=== PATIENT | male | born 1950 | race Caucasian/White ===

== ENCOUNTER 2017-10-06 16:28 | Emergency (ER) | payer MEDICARE, OTHER ==
[~2017-10-06] VITALS: Ht 177.8 cm; Wt 72.7 kg
[2017-10-06 16:31] VITALS: BP 189/87; PULSE 84; TEMP 100.7
[2017-10-06] MEDS ORDERED: PENTASA500 MG PO (16:49)
[2017-10-06] MEDS ORDERED: NEXIUM 40MG40 MG PO (16:50)
[2017-10-06 16:56] LABS: BASO % 0.2 % (0.0-2.0); EOS % 0.2 % (0-4.0); GRAN # 6.3 (1.4-6.5); GRAN % 57.8 % (42.2-75.2); LYMPH # 2.3 (1.2-3.4); LYMPH % 21.2 % (20.0-51.0); MEAN CELL VOLUME 90 fl (80.0-100.0); MEAN CORPUSCULAR HGB CONC 33 g/dl (33.0-37.0); MEAN PLATELET VOLUME 10.1 fl (7.4-10.4); MONO # 2.2 (0.1-0.6); MONO % 19.9 % (1.7-9.3); PLATELET COUNT 262 K/mm3 (130-400); RED BLOOD COUNT 3.75 M/mm3 (4.20-5.60); REDCELL DISTRIBUTION WIDTH-CV 13.5 % (11.5-14.5)
[2017-10-06 16:57] LABS: HEMATOCRIT 33.8 % (42.0-52.0); HEMOGLOBIN 11.2 g/dl (13.5-18.0); MEAN CORPUSCULAR HEMOGLOBIN 30 pg (27.0-31.0)
[2017-10-06 17:06] LABS: ALBUMIN 3.5 gm/dL (3.5-5.0); BILIRUBIN,TOTAL 0.5 mg/dL (0.0-1.0); CALCIUM 8.3 mg/dL (8.4-10.2); CREATININE, serum 0.73 mg/dL (0.66-1.25); POTASSIUM 3.3 mmol/L (3.4-5.0); TOTAL PROTEIN 6.8 gm/dL (6.4-8.2)
[2017-10-06 17:22] LABS: COLLECTION METHOD CLEAN CATCH
[2017-10-06 17:31] LABS: PH 6 (5-8); SQUAMOUS EPITHELIAL None Seen /hpf; URINE APPEARANCE Clear; URINE BACTERIA None Seen /hpf; URINE BILIRUBIN Negative (NEGATIVE); URINE BLOOD Negative (NEGATIVE); URINE COLOR Yellow; URINE GLUCOSE Negative (NEGATIVE); URINE KETONE Negative (NEGATIVE); URINE LEUKOCYTE ESTERASE Negative (NEGATIVE); URINE NITRATE Negative (NEGATIVE); URINE PROTEIN(semi-quant) Negative (NEGATIVE); URINE RBC 0-2 /hpf; URINE UROBILINOGEN Negative (NEGATIVE)
[2017-10-07] MEDS ORDERED: FLAGYL 250250 MG/TAB PO (19:22)
== END 2017-10-06 18:24 | disposition home or self-care (01) ==
LOC: COL.ER 16:28
PROVIDERS: Emergency Medicine
DX: B34.9 Viral infection, unspecified (principal); K21.9 Gastro-esophageal reflux disease without esophagitis; K50.90 Crohn's disease, unspecified, without complications; Z87.440 Personal history of urinary (tract) infections; Z98.890 Other specified postprocedural states
CPT/HCPCS: J7030; Q9967

== ENCOUNTER 2017-10-07 17:18 | Emergency (ER) | payer MEDICARE, OTHER ==
[~2017-10-07] VITALS: Ht 177.8 cm; Wt 70.5 kg
[~2017-10-07 17:18] MED LIST: NEXIUM 40MG40 MG PO; PENTASA500 MG PO
[2017-10-07 18:24] LABS: MEAN CELL VOLUME 90 fl (80.0-100.0); MEAN CORPUSCULAR HGB CONC 34 g/dl (33.0-37.0); MEAN PLATELET VOLUME 10.4 fl (7.4-10.4); PLATELET COUNT 204 K/mm3 (130-400); RED BLOOD COUNT 3.45 M/mm3 (4.20-5.60); REDCELL DISTRIBUTION WIDTH-CV 13.7 % (11.5-14.5)
[2017-10-07 18:26] LABS: HEMOGLOBIN 10.4 g/dl (13.5-18.0); MEAN CORPUSCULAR HEMOGLOBIN 30 pg (27.0-31.0)
[2017-10-07 18:38] LABS: BILIRUBIN,TOTAL 0.6 mg/dL (0.0-1.0); C-REACTIVE PROTEIN 3.4 mg/dL (0.0-0.9); CALCIUM 7.7 mg/dL (8.4-10.2); CREATININE, serum 0.74 mg/dL (0.66-1.25); TOTAL PROTEIN 6.2 gm/dL (6.4-8.2)
[2017-10-07 18:48] LABS: BAND 18 % (0-10); LYMPHOCYTE 8 % (20.0-51.0); NEUTROPHILS 69 % (42.0-75.2); PLATELET ESTIMATE NORMAL (NORMAL)
[2017-10-07 18:48] LABS: COLLECTION METHOD CLEAN CATCH
[2017-10-07 18:54] VITALS: BP 144/78; PULSE 85; TEMP 102.6
[2017-10-07 18:55] LABS: PH 8 (5-8); SQUAMOUS EPITHELIAL None Seen /hpf; URINE APPEARANCE Hazy; URINE BACTERIA None Seen /hpf; URINE BILIRUBIN Negative (NEGATIVE); URINE BLOOD Negative (NEGATIVE); URINE COLOR Yellow; URINE GLUCOSE Negative (NEGATIVE); URINE KETONE Negative (NEGATIVE); URINE LEUKOCYTE ESTERASE Negative (NEGATIVE); URINE NITRATE Negative (NEGATIVE); URINE PROTEIN(semi-quant) Negative (NEGATIVE); URINE RBC 0-2 /hpf; URINE UROBILINOGEN Negative (NEGATIVE)
[2017-10-07] MEDS ORDERED: FLAGYL 250250 MG/TAB PO (19:22)
== END 2017-10-07 19:48 | disposition short-term general hospital (02) ==
LOC: COL.ER 17:18
PROVIDERS: Family Medicine
DX: K52.9 Noninfective gastroenteritis and colitis, unspecified (principal); K50.90 Crohn's disease, unspecified, without complications
CPT/HCPCS: J7030

== ENCOUNTER 2021-04-23 11:26 | Day surgery (SDC) | payer MEDICARE, OTHER ==
[~2021-04-23] VITALS: Ht 180.3 cm; Wt 68.4 kg
[~2021-04-23 11:26] MED LIST changes: +FLAGYL 250250 MG/TAB PO
[2021-04-23] MEDS ORDERED: PRIL40 PO (12:04)
[2021-04-23] MEDS ORDERED: FLEXERIL 1010 MG/TAB PO (12:07)
[2021-04-23 12:27] VITALS: BP 154/84; PULSE 66; TEMP 97.2
[2021-04-23 13:55] VITALS: BP 128/80; PULSE 66; TEMP 97
[2021-04-23 14:00] VITALS: BP 125/85; PULSE 70
[2021-04-23 14:15] VITALS: PULSE 60
[2021-04-23 14:35] VITALS: BP 142/80; PULSE 62
--- NOTE | 2021-04-23 15:00 | NUR ---
1355 Pt returns from endo procedure via cart and RN assist to [facility]. Pt ambulates from cart to recliner with RN assist. Monitors on and alarms set. Call light within reach. Report received from JUANCHO Pandey. Pt alert and oriented. Pt requests juice and muffin. Pt denies any pain or nausea. 1405 Pt taking food and drink well. No complications noted. 1430 Pt ambulates to restroom with RN assist without complication. 1450 Discharge instructions given to pt and . All questions answered to their satisfaction. Handed to pt are a thank you card and discharge information. 1500 Pt transferred out of the hospital via wheelchair and this RN assist, to private vehicle driven by pt's .
== END 2021-04-23 13:55 | disposition home or self-care (01) ==
LOC: SDCO 11:26
DX: K50.00 Crohn's disease of small intestine without complications (principal); K21.9 Gastro-esophageal reflux disease without esophagitis; K63.3 Ulcer of intestine; K57.30 Diverticulosis of large intestine without perforation or abscess without bleeding; M19.90 Unspecified osteoarthritis, unspecified site; K59.00 Constipation, unspecified; K22.70 Barrett's esophagus without dysplasia; Z20.822 Contact with and (suspected) exposure to COVID-19; Z79.899 Other long term (current) drug therapy
CPT/HCPCS: J2704; J7120

== ENCOUNTER → 2021-06-03 | Outpatient (CLI) | payer MEDICARE, OTHER ==
[~2021-06-03] MED LIST changes: +FLEXERIL 1010 MG/TAB PO; +PRIL40 PO
== END ==
LOC: COL.RAD 07:44
DX: K50.919 Crohn's disease, unspecified, with unspecified complications (principal)

== ENCOUNTER 2021-11-25 12:46 | Outpatient (CLI) | payer MEDICARE, OTHER ==
[~2021-11-25] VITALS: Ht 180.3 cm; Wt 69.4 kg
[2021-11-25 13:15] LABS: HEMOGLOBIN 10.3 g/dl (13.5-18.0); MEAN CELL VOLUME 83 fl (80.0-100.0); MEAN CORPUSCULAR HEMOGLOBIN 26 pg (27-31); MEAN CORPUSCULAR HGB CONC 31 g/dl (33.0-37.0); PLATELET COUNT 235 K/mm3 (130-400); RED BLOOD COUNT 4.04 M/mm3 (4.20-5.60); REDCELL DISTRIBUTION WIDTH-CV 18.9 % (11.5-14.5)
[2021-11-25 13:17] LABS: HEMATOCRIT 33.5 % (42.0-52.0)
[2021-11-25 13:33] LABS: ALBUMIN 3.6 gm/dL (3.4-4.8); ALKALINE PHOSPHATASE 45 U/L (40-150); ANION GAP 8 mmol/L (7-16); AST,SGOT 14 U/L (5-34); BILIRUBIN,TOTAL 0.7 mg/dL (0.2-1.2); BLOOD UREA NITROGEN 13 mg/dL (8-26); CALCIUM 8.6 mg/dL (8.4-10.2); CARBON DIOXIDE 27 mmol/L (23-31); CHLORIDE 101 mmol/L (98-107); CREATININE, serum 0.82 mg/dL (0.72-1.25); GLUCOSE 211 mg/dL (70-99); POTASSIUM 4.1 mmol/L (3.5-4.5); SODIUM 136 mmol/L (136-145); TOTAL PROTEIN 7.1 gm/dL (6.2-8.1)
[2021-11-25 13:34] LABS: ALANINE AMINOTRANSFERASE < 6 U/L (0-55)
[2021-11-25 13:48] VITALS: BP 135/64; PULSE 73; TEMP 98.3
[2021-11-25 13:57] LABS: ANISOCYTOSIS 2+; BAND 2 % (0-10); HYPOCHROMIA 3+; LYMPHOCYTE 15 % (20.0-51.0); NEUTROPHILS 80 % (42.0-75.2); PLATELET ESTIMATE NORMAL (NORMAL)
[2021-11-25 13:58] LABS: SCHISTOCYTES 2+
[2021-11-25] MEDS ORDERED: IRON TABLETS325 MG PO (14:00)
--- NOTE | 2021-11-25 15:26 | NUR ---
Infusion completed, pt tolerated without issue. Discussed with pt that protocol is to have patients remain in dept for additional 30 min observation following initial dose of new medications. He states he does not wish to stay. Signs of adverse medication reactions reviewed with pt, he expresses understanding. He states that he lives close to hospital and will return with any concerns. Pt information packet about med was given to pt prior to infusion. INT DC'd with catheter intact. He is escorted out from dept.
[2021-11-25] MEDS ORDERED: PREDNISONE 5MG5 MG PO (15:40)
[2021-11-27 08:57] LABS: PATHOLOGY DIFF REVIEW OK
== END 2021-11-25 15:30 | disposition home or self-care (01) ==
LOC: EUO 12:46
PROVIDERS: Internal Medicine Gastroenterology
DX: K50.919 Crohn's disease, unspecified, with unspecified complications (principal)
CPT/HCPCS: J1200; J2930; J3358; J7050

== ENCOUNTER 2022-03-10 10:00 | Emergency (ER) | payer MEDICARE, OTHER ==
[~2022-03-10] VITALS: Ht 180.3 cm; Wt 70.5 kg
[~2022-03-10 10:00] MED LIST changes: +IRON TABLETS325 MG PO; +PREDNISONE 5MG5 MG PO
[2022-03-10 10:33] VITALS: TEMP 98.2
[2022-03-10] MEDS ORDERED: AMOXICILLIN 8751 TAB PO (12:21)
[2022-03-10 12:44] VITALS: BP 148/77; PULSE 75
== END 2022-03-10 12:44 | disposition home or self-care (01) ==
LOC: COL.ER 10:00
DX: S63.286A Dislocation of proximal interphalangeal joint of right little finger, initial encounter (principal); S50.311A Abrasion of right elbow, initial encounter; S40.811A Abrasion of right upper arm, initial encounter; S70.211A Abrasion, right hip, initial encounter; V29.3XXA Motorcycle rider (driver) (passenger) injured in unspecified nontraffic accident, initial encounter; Y93.55 Activity, bike riding; Y92.410 Unspecified street and highway as the place of occurrence of the external cause
CPT/HCPCS: J0690; J3010

== ENCOUNTER → 2022-11-15 | Outpatient (CLI) | payer MEDICARE, OTHER ==
[~2022-11-15] MED LIST changes: +AMOXICILLIN 8751 TAB PO
== END ==
LOC: COL.RAD 07:18
DX: Z13.6 Encounter for screening for cardiovascular disorders (principal); F17.201 Nicotine dependence, unspecified, in remission

== ENCOUNTER 2024-02-22 11:29 | Day surgery (SDC) | payer MEDICARE, OTHER ==
[~2024-02-22] VITALS: Ht 180.3 cm; Wt 70.0 kg
[~2024-02-22 11:29] MED LIST changes: +LR 1,000 ML IV SCH
[2024-02-22] MEDS ORDERED: PRILOSEC 20MG20 MG PO (12:07)
[2024-02-22] MEDS ORDERED: AMLODIPINE PO (12:09)
[2024-02-22] MEDS ORDERED: VALSARTAN PO (12:09)
[2024-02-22] MEDS ORDERED: STELARA90 MG/ML SQ (12:10)
[2024-02-22] MEDS ORDERED: XARELTO20 MG PO (12:11)
[2024-02-22 12:41] VITALS: BP 100/63; PULSE 66; TEMP 97.8
[2024-02-22] MEDS ORDERED: fentaNYL 50 MCG/ML 2 ML VIAL ONE (12:47)
[2024-02-22] MEDS ORDERED: Lidocaine PF 2% (20 MG/ML) 5 ML VIAL ONE (12:48)
[2024-02-22] MEDS ORDERED: Glycopyrrolate 0.2 MG/ML 1 ML VIAL ONE (12:48)
[2024-02-22] MEDS ORDERED: NS 10 ML IV ONE (12:48)
[2024-02-22] MEDS ORDERED: Ketorolac 30 MG/ML VIAL ONE (12:48)
[2024-02-22] MEDS ORDERED: Ondansetron 4 MG/2 ML VIAL ONE (12:48)
[2024-02-22] MEDS ORDERED: dexAMETHasone 10 MG/ML VIAL ONE (12:48)
[2024-02-22] MEDS ORDERED: Topical Skin Adhesive 1 EACH (1 ML) TOP ONE (15:10)
[2024-02-22] MEDS ORDERED: Lidocaine PF 2% (20 MG/ML) 5 ML VIAL IJP ONE (15:10)
[2024-02-22] MEDS ORDERED: Ondansetron 4 MG/2 ML VIAL IV PRN ×2 (15:15→16:00)
[2024-02-22] MEDS ORDERED: fentaNYL 50 MCG/ML 1 ML SYRINGE/VIAL [PACU/SDC ONLY] IV PRN (15:15)
[2024-02-22] MEDS ORDERED: hydrALAZINE 20 MG/ML 1 ML VIAL IV PRN (15:15)
[2024-02-22] MEDS ORDERED: HYDROmorphone 1 MG/1 ML SYRINGE [PACU/SDC ONLY] IV PRN (15:15)
[2024-02-22] MEDS ORDERED: droPERidol 2.5 MG/ML 2 ML VIAL IV PRN (15:15)
[2024-02-22 15:34] VITALS: BP 111/62; PULSE 81; TEMP 98.2
--- NOTE | 2024-02-22 15:34 | NUR ---
PATIENT RETURNS TO ROOM 7 PER CART FROM SURGERY ACCOMPANIED BY RED Brown CRNA AND ELOY DAWKINS. AWAKE AND ALERT. INCISION ON LEFT GROIN AREA INTACT WITH EXOFIN AND WOUND EDGES WELL APPROIXMATED. SLIGHT BRUISING AT THE SITE. NO BLEEDING FROM INCISION AND SITE IS SOFT TO TOUCH. INSTRUCTED TO USE INTERMITTENT ICE AT HOME. IVF INFUSING. SPOUSE IN ROOM. CALL LIGHT IN REACH.
[2024-02-22 15:49] VITALS: BP 106/60; PULSE 78
--- NOTE | 2024-02-22 15:49 | NUR ---
RESTING AND SIPPING ON WATER. DENIES PAIN OR NAUSEA.
[2024-02-22] MEDS ORDERED: Ibuprofen 600 MG TAB PO PRN (16:00)
[2024-02-22 16:04] VITALS: BP 122/61; PULSE 66; TEMP 98.2
--- NOTE | 2024-02-22 16:04 | NUR ---
IV DISCONTINUED AND SITE IS FREE OF REDNESS. PATIENT IS ABLE TO DRESS SELF. LEFT GROIN INCISION UNCHANGED FROM INITIAL ASSESSMENT.
--- NOTE | 2024-02-22 16:20 | NUR ---
DISMISSAL INSTRUCTIONS GIVEN TO BOTH PATIENT AND SPOUSE. BOTH VERBALIZE UNDERSTANDING OF THESE. ASSISTED INTO WHEELCHAIR AND READIED FOR DISCHARGE.
--- NOTE | 2024-02-22 16:26 | NUR ---
PATIENT DISCHARGED TO HOME DRIVEN BY SPOUSE PER PRIVATE VEHICLE AND TAKEN TO VEHICLE PER WHEELCHAIR AND ASSISTED INTO CAR BY THIS RN WITH INSTRUCTIONS IN HAND.
== END 2024-02-22 16:30 | disposition home or self-care (01) ==
LOC: SDCO 11:29
DX: K40.91 Unilateral inguinal hernia, without obstruction or gangrene, recurrent (principal); K21.9 Gastro-esophageal reflux disease without esophagitis; Z79.899 Other long term (current) drug therapy
CPT/HCPCS: C1781; J0690; J1100; J1885; J2405; J2704; J3010; J7120